=== PATIENT | female | born 1970 | race Caucasian/White ===

== ENCOUNTER 2017-10-14 10:55 | Inpatient (IN) | payer MEDICAID ==
[~2017-10-14] VITALS: Ht 157.5 cm; Wt 65.8 kg
[2017-10-14 11:02] VITALS: BP 125/69
--- NOTE | 2017-10-14 11:24 | NUR ---
Note undone in EDM - 10/14/17 at 1125 by MEDFL BUENO, VOMIT X 5 DAYS; GIVEN RX ZOFRAN AND MACROBID NO RELIEF. HAVENT TAKEN METFORMIN WHOLE WEEKEND D/T VOMITING. HX: DM. RX; GLUCOPHAGE 500MG BID. ALLERGIES;NKA. PATIENT STATES PAIN OF 8/10 AT THIS TIME; PATIENT POSITIONED FOR COMFORT; ER MD MADE AWARE OF PT STATUS.
--- NOTE | 2017-10-14 11:43 | NUR ---
PT MOVED TO BED 10
[2017-10-14] MEDS ORDERED: ONDANSETRON 4 MG/2 ML VIAL IVP ONE (11:45)
[2017-10-14] MEDS ORDERED: KETOROLAC 30 MG/ML VIAL IVP ONE (11:45)
[2017-10-14] MEDS ORDERED: NACL 0.9% 1,000 ML IV ONE ×2 (11:45→13:30)
[2017-10-14] MEDS ORDERED: cefTRIAXone 1,000 MG VIAL ONE (12:04)
[2017-10-14 12:08] LABS: BASOPHILS % (AUTO) 0.1 % (0.0-2.0); EOSINOPHILS % (AUTO) 0.2 % (0.0-4.0); HEMATOCRIT 33.8 % (36-48); HEMOGLOBIN 11.3 g/dL (12.0-16.0); LYMPHOCYTES # (AUTO) 0.5 K/uL (2.5-16.5); LYMPHOCYTES % (AUTO) 4.9 % (20.5-51.1); MEAN CORPUSCULAR HEMOGLOBIN 29 pg (27-31); MEAN CORPUSCULAR HGB CONC 33 g/dL (33-37); MEAN CORPUSCULAR VOLUME 86.6 fL (80-94); MONOCYTES # (AUTO) 0.6 K/uL (0.8-1.0); MONOCYTES % (AUTO) 5.8 % (1.7-9.3); NEUTROPHILS # (AUTO) 9.7 K/uL (1.8-7.7); PLATELET COUNT (AUTO) 179 K/uL (140-450); RED BLOOD CELL COUNT(AUTO) 3.91 MIL/uL (4.20-5.40); RED CELL DISTRIBUTION WIDTH 14.4 % (11.6-13.7); WHITE BLOOD COUNT (AUTO) 10.9 K/uL (4.8-10.8)
[2017-10-14 12:09] LABS: APPEARANCE,URINE CLEAR (CLEAR); BILIRUBIN,URINE NEGATIVE (NEGATIVE); BLOOD, URINE TRACE-I (NEGATIVE); COLOR,URINE YELLOW (YELLOW); LEUKOCYTE ESTERASE ,URINE NEGATIVE (NEGATIVE); NITRITE, URINE NEGATIVE (NEGATIVE); UGLUCOSE 3+ (NEGATIVE)
--- NOTE | 2017-10-14 12:12 | NUR ---
PT RECIEVED FROM JANET BRISENO. PT AMBULATES WITH NORMAL GAIT, PLACED ON ALL MONITORS, VS WNL. PT AXO X4, PERRLA, EQUAL COUNTER FORMER/PUSHES, FACIAL SYMMETRY, CLEAR SPEACH. 20G IV STARTED TO RFA, IVF NS BOLUS STARTED. NEW ORDERS TO BE CARRIED OUT
[2017-10-14 12:26] LABS: ALBUMIN 2.7 g/dL (3.4-5.0); ANION GAP 9.6 (8-16); CARBON DIOXIDE 26.3 mmol/L (21-32); CREATININE 0.9 mg/dL (0.6-1.3); POTASSIUM 3.9 mmol/L (3.5-5.1); TOTAL BILIRUBIN 0.6 mg/dL (0.0-1.0)
[2017-10-14 12:28] LABS: PROTHROMBIN TIME 11.9 secs (10.8-13.4)
[2017-10-14 12:58] LABS: RBC,URINE NONE SEEN /HPF (0-5)
[2017-10-14] MEDS ORDERED: fentaNYL 0.05 MG/ML VIAL IVP ONE (13:30)
[2017-10-14] MEDS ORDERED: INSULIN REGULAR, HUMAN 100 UNIT/ML VIAL SUBQ ONE (13:30)
--- NOTE | 2017-10-14 13:30 | NUR ---
Pt continues to c/o headache, Dr. Campos made aware, awaiting new orders.
[2017-10-14] MEDS ORDERED: ONDANSETRON 4 MG/2 ML VIAL IVP PRN ×2 (15:00→15:50)
--- NOTE | 2017-10-14 15:09 | NUR ---
Patient will be admitted to care of Dr. Ferguson. Admited to Med/Surg. Will go to room 111-B. Belongings list completed. Report to Jerilyn GONZALES.
[2017-10-14] MEDS ORDERED: NITR100C7 PO (15:43)
[2017-10-14] MEDS ORDERED: METF500T PO (15:43)
--- NOTE | 2017-10-14 15:45 | NUR ---
PT BROUGHT IN FROM ER IN [facility], REPORT RECEIVED FROM WAFER FABRICATION TECHNICIAN, PT AMBULATED FROM HALLWAY TO BED WITH STEADY GAIT, PT C/O NAUSEA, PT AAOX4, RESP EVEN UNLABORED, SKIN WARM DRY COLOR WNL, PT REPORTS VOMITING SINCE FRIDAY, PT ORIENTED TO ROOM AND FLOOR, PLAN OF CARE DISCUSSED, CALL DAMIAN WITHIN REACH, BED LOCKED IN LOW POSITION, SIDE RAILS UP X2, MRSA DONE, INITIAL ASSESSEMNT DONE, AT BEDSIDE, WILL CONTINUE TO MONITOR.
[2017-10-14] MEDS ORDERED: ACETAMINOPHEN 325 MG TAB PO PRN (15:50)
[2017-10-14] MEDS ORDERED: LORazepam 2 MG/ML VIAL IVP PRN (15:50)
[2017-10-14] MEDS ORDERED: DEXTROSE 50% 50 ML SYR IVP PRN (15:50)
[2017-10-14] MEDS ORDERED: DEXT 5% /NACL 0.9% 1,000 ML IV SCH (15:50)
[2017-10-14 16:22] VITALS: BP 144/72
[2017-10-14] MEDS: BLOOD GLUCOSE MONITORING 1 DEV DEV FS SCH ×2 (16:30→22:00)
[2017-10-14] MEDS: INSULIN LISPRO SLIDING SCALE 100 UNITS/ML VIAL SUBQ PRN ×2 (17:51→22:26)
--- NOTE | 2017-10-14 18:40 | NUR ---
PT SITTING UP IN NAD, STATES NAUSEA HAS SUBSIDED NOT, IVF INFUSING WELL, SITE WNL, WILL CONTINUE TO MONITOR,
--- NOTE | 2017-10-14 19:20 | NUR ---
REPORT GIVEN TO FEATHER TRIMMER NURSE MARI WHITTAKER IN STABLE CONDITION.
[2017-10-14 20:30] VITALS: BP 114/66
--- NOTE | 2017-10-14 20:30 | NUR ---
SEEN PT AWAKE, ALERT AND ORIENTED, SPEAKS MOSTLY KITTITIAN. FAMILY AT BEDSIDE AT BEDSIDE. INITIAL ASSESSMENT DONE. VITAL SIGNS CHECKED. PT COMPLAINING OF HEADACHE AND FEELS NAUSEOUS RIGHT NOW. WILL MEDICATE W/ ZOFRAN IVP ORDERED. OFFERED TYLENOL BUT REFUSED. OFFERED NORCO AND PT STATES ITS MAKING HER MORE NAUSEOUS. PT STATES, THEY GAVE HER SOMETHING IV IN ED AND IT RELIEVED HER PAIN. WILL NOTIFY MD. SAFETY ENSURED. CALL LIGHT W/IN REACH. PT ASKED FOR EXTRA EMESIS BAG AND CRANBERRY JUICE.
--- NOTE | 2017-10-14 20:56 | NUR ---
PAGED DR Marcelo WHATLEY FOR PT'S HEADACHE. WILL AWAIT FOR CALL BACK.
--- NOTE | 2017-10-14 20:58 | NUR ---
SPOKE TO DR Marcelo WHATLEY REGARDING PT'S HEADACHE. HE ORDERED TORADOL 30MG IVP [id number] FOR SEVERE PAIN.
--- NOTE | 2017-10-14 22:00 | NUR ---
SEEN PT ASLEEP. AWAKEN PT. BLOOD SUGAR CHECKED:167. PT GIVEN 2UNITS OF LISPRO INSULIN PER SLIDING SCALE. PT DENIES ANY OTHER NEEDS. CALL LIGHT W/IN REACH.
[2017-10-14] MEDS: KETOROLAC 30 MG/ML VIAL IVP PRN (22:23)
--- NOTE | 2017-10-15 00:40 | NUR ---
SEEN PT SLEEPING COMFORTABLY. IVF INFUSING WELL. CALL LIGHT W/IN REACH.
[2017-10-15 04:00] VITALS: BP 148/95
--- NOTE | 2017-10-15 04:25 | NUR ---
SEEN PT AWAKE. VITAL SIGNS CHECKED AND WNL. PT DENIES ANY COMPLAINTS AT THIS TIME. CALL LIGHT W/IN REACH. WILL CONTINUE TO MONITOR.
[2017-10-15 06:48] LABS: HEMATOCRIT 26.3 % (36-48); MEAN CORPUSCULAR HEMOGLOBIN 29 pg (27-31); MEAN CORPUSCULAR HGB CONC 34 g/dL (33-37); MEAN CORPUSCULAR VOLUME 86.2 fL (80-94); PLATELET COUNT (AUTO) 148 K/uL (140-450); RED BLOOD CELL COUNT(AUTO) 3.06 MIL/uL (4.20-5.40); RED CELL DISTRIBUTION WIDTH 14.3 % (11.6-13.7)
--- NOTE | 2017-10-15 06:50 | NUR ---
SEEN PT AWAKE. BLOOD SUGAR CHECKED:142. NO COVERAGE NEEDED. PT DENIES ANY DISCOMFORT. ICE CHIPS GIVEN PER REQUEST.
[2017-10-15] MEDS: BLOOD GLUCOSE MONITORING 1 DEV DEV FS SCH ×4 (06:59→20:16)
[2017-10-15 07:21] LABS: EOSINOPHILS % (MANUAL) 1 % (0-4); LYMPHOCYTES % (MANUAL) 12 % (20-46); MONOCYTES % (MANUAL) 10 % (5-12)
--- NOTE | 2017-10-15 07:26 | NUR ---
WILL ENDORSE TO DAYSHIFT NURSE FOR CONTINUITY OF CARE.
[2017-10-15 07:28] LABS: ANION GAP 12.1 (8-16); CARBON DIOXIDE 22.5 mmol/L (21-32); CREATININE 0.7 mg/dL (0.6-1.3); POTASSIUM 3.6 mmol/L (3.5-5.1)
--- NOTE | 2017-10-15 08:00 | NUR ---
ASSUMED CARE OF PATIENT. PATIENT IS AWAKE ALERT AND ORIENTED, ABLE TO MAKE NEEDS KNOWN, DENIES PAIN OR DISCOMFORT AT THIS TIME. WILL CONTINUE TO MONITOR
--- NOTE | 2017-10-15 10:27 | NUR ---
PATIENT HAS BEEN SCREENED AND CATEGORIZED HIGH NUTRITION RISK. PATIENT WILL BE SEEN WITHIN 1-2 DAYS OF ADMISSION. 10/15/17 - 10/16/[address]
--- NOTE | 2017-10-15 12:30 | NUR ---
SPOUSE AT BEDSIDE AND ATTENTIVE TO PATIENTS NEEDS. NO ADVERSE REACTION NOTED TO FIRST DOSE OF ROCEPHIN AT THIS TIME. WILL CONTINUE TO MONITOR
[2017-10-15] MEDS: KETOROLAC 30 MG/ML VIAL IVP PRN (12:31)
[2017-10-15] MEDS: INSULIN LISPRO SLIDING SCALE 100 UNITS/ML VIAL SUBQ PRN ×3 (12:38→20:19)
[2017-10-15] MEDS ORDERED: NACL 0.9% 1,000 ML IV SCH (15:50)
[2017-10-15 18:57] VITALS: BP 147/78
--- NOTE | 2017-10-15 19:30 | NUR ---
RECEIVED BEDSIDE REPORT FROM DAY SHIFT NURSE BRINDA RN, PT STABLE, NO DISTRESS NOTED, IV TO R FA 20G RUNNING NS @ 100ML/HR, INFUSING WELL, PT ON ROOM AIR NO SOB, INITIAL ASSESSMENT DONE, ALL SAFETY PRECAUTION MET, FAMILY BY BEDSIDE, WILL CONTINUE TO MONITOR.
--- NOTE | 2017-10-15 20:16 | NUR ---
CHECKED PT BS, PT BS OF 195, INSULIN PER SLIDING SCALE ORDERED GIVEN, PT TOLERATED WELL, NO DISTRESS NOTED, CALL LIGHT WITHIN REACH, WILL CONTINUE TO MONITOR.
--- NOTE | 2017-10-15 22:20 | NUR ---
CHECKED ON PT, PT SLEEPING, NO DISTRESS NOTED, CALL LIGHT WITHIN REACH, WILL CONTINUE TO MONITOR.
[2017-10-16] VITALS: BP 149/57
[2017-10-16] MEDS: KETOROLAC 30 MG/ML VIAL IVP PRN (00:59)
--- NOTE | 2017-10-16 00:59 | NUR ---
PT C/O HEADACHE 04/15, PAIN MEDICATION GIVEN, PT TOLERATED WELL, NO DISTRESS NOTED, CALL LIGHT WITHIN REACH, WILL CONTINUE TO MONITOR.
--- NOTE | 2017-10-16 02:24 | NUR ---
CHECKED ON PT, PT SLEEPING, NO DISTRESS NOTED, CALL LIGHT WITHIN REACH, WILL CONTINUE TO MONITOR.
--- NOTE | 2017-10-16 04:10 | NUR ---
CHECKED ON PT, PT SLEEPING, NO DISTRESS NOTED, CALL LIGHT WITHIN REACH, WILL CONTINUE TO MONITOR.
[2017-10-16] MEDS: BLOOD GLUCOSE MONITORING 1 DEV DEV FS SCH ×4 (06:06→20:58)
[2017-10-16 06:29] LABS: BASOPHILS % (AUTO) 0.4 % (0.0-2.0); EOSINOPHILS # (AUTO) 0.1 K/uL (0-0.4); HEMOGLOBIN 8.9 g/dL (12.0-16.0); LYMPHOCYTES # (AUTO) 1.6 K/uL (2.5-16.5); MEAN CORPUSCULAR HEMOGLOBIN 30 pg (27-31); MEAN CORPUSCULAR HGB CONC 34 g/dL (33-37); MEAN CORPUSCULAR VOLUME 86.7 fL (80-94); MONOCYTES # (AUTO) 0.9 K/uL (0.8-1.0); MONOCYTES % (AUTO) 14.5 % (1.7-9.3); NEUTROPHILS # (AUTO) 3.8 K/uL (1.8-7.7); NEUTROPHILS % (AUTO) 59.1 % (42.2-75.2); PLATELET COUNT (AUTO) 171 K/uL (140-450); RED CELL DISTRIBUTION WIDTH 14.6 % (11.6-13.7); WHITE BLOOD COUNT (AUTO) 6.4 K/uL (4.8-10.8)
[2017-10-16 06:57] LABS: ANION GAP 10.5 (8-16); CARBON DIOXIDE 25.4 mmol/L (21-32); CREATININE 0.6 mg/dL (0.6-1.3); POTASSIUM 3.9 mmol/L (3.5-5.1)
--- NOTE | 2017-10-16 07:29 | NUR ---
ENDORSED PLAN OF CARE TO DAY SHIFT NURSE MACARIO RN, PT STABLE, NO DISTRESS NOTED, CALL LIGHT WITHIN REACH.
--- NOTE | 2017-10-16 07:30 | NUR ---
RECEIVED PT ON BED AAOX4. NO SOB NOTED. NO C/O PAIN AT THIS TIME. IV TO RT HAND PATENT AND INTACT. CHEST, CLEAR. ABDOMEN SOFT, BOWEL SOUNDS PRESENT. NO EDEMA NOTED. INSTRUCTED PT TO CALL FOR ASSISTANCE, CALL LIGHT WITHIN REACH. PT VERBALIZED UNDERSTANDING.
[2017-10-16 08:00] VITALS: BP 141/72
--- NOTE | 2017-10-16 10:05 | NUR ---
PT HAD A SHOWER. ACTIVITY TOLERATED WELL.
--- NOTE | 2017-10-16 11:25 | NUR ---
CM NOTE INITIAL REVIEW DONE
[2017-10-16] MEDS: INSULIN LISPRO SLIDING SCALE 100 UNITS/ML VIAL SUBQ PRN ×2 (12:09→21:01)
--- NOTE | 2017-10-16 13:34 | NUR ---
10/16/17 RD INITIAL ASSESSMENT COMPLETED PLEASE REFER TO NUTRITION ASSESSMENT UNDER CARE ACTIVITY FOR ESTIMATED NUTRITIONAL NEEDS. 1. CONTINUE CCHO 60G TOLERATED 2. RECOMMEND NA 2G DIET TOLERATED 3. ENCOURAGE INCREASED PO INTAKE 4. PROVIDED PT WITH CKD DIET EDUCATION, PT ACKNOWLEDGED 5. RD TO FOLLOW-UP DAYS, 5-7 DAYS, LOW RISK TARIQ NICE RD
--- NOTE | 2017-10-16 16:20 | NUR ---
PT RESTING. NO SOB NOTED. NO SIGNS OF PAIN.
[2017-10-16 16:45] VITALS: BP 152/77
[2017-10-16] MEDS: HYDROcodone/APAP 5/325 MG 1 TAB TAB PO PRN ×2 (16:59→21:07)
--- NOTE | 2017-10-16 19:22 | NUR ---
PT AWAKE. NO SOB NOTED. NO C/O PAIN AT THIS TIME. ENDORSED TO NEXT SHIFT NURSE FOR CONTINUITY OF CARE.
--- NOTE | 2017-10-16 19:23 | NUR ---
RECD. RESTING IN BED, AWAKE, A/OX4. RESPIRATION EVEN AND UNLABORED. IV SALINE LOCK AT THE RIGHT FOREARM G20, PATENT AND INTACT. WATCHING TV. PLAN OF CARE FOR THE SHIFT DISCUSSED. VERBALIZED UNDERSTANDING. DENIES PAIN 0/10.
--- NOTE | 2017-10-16 19:35 | NUR ---
Patient's Plan of Care was discussed and reviewed with ACTUARY MANAGER: THU SUÁREZ
[2017-10-16] MEDS ORDERED: traZODone 50 MG TAB PO PRN (22:40)
--- NOTE | 2017-10-16 22:40 | NUR ---
SPOKE WITH DR. Monica WHATLEY, WILL SEE PATIENT TOMORROW.
[2017-10-17] VITALS: BP 144/70
--- NOTE | 2017-10-17 02:39 | NUR ---
UNABLE TO SLEEP, MEDICATED WITH TRAZODONE ORDERED.
--- NOTE | 2017-10-17 03:39 | NUR ---
SLEEPING COMFORTABLY IN BED.
[2017-10-17] MEDS: BLOOD GLUCOSE MONITORING 1 DEV DEV FS SCH (06:49)
--- NOTE | 2017-10-17 06:50 | NUR ---
ABLE TO SLEEP WELL. CONDITION REMAIN STABLE. WILL ENDORSE TO AM NURSE FOR CONTINUITY OF CARE.
--- NOTE | 2017-10-17 07:10 | NUR ---
ENDORSED TO MS. JULIANNE RN FOR CONTINUITY OF CARE.
[2017-10-17 07:20] LABS: BASOPHILS % (AUTO) 0.3 % (0.0-2.0); EOSINOPHILS # (AUTO) 0.1 K/uL (0-0.4); EOSINOPHILS % (AUTO) 2.1 % (0.0-4.0); HEMATOCRIT 26.4 % (36-48); LYMPHOCYTES # (AUTO) 1.3 K/uL (2.5-16.5); LYMPHOCYTES % (AUTO) 22.4 % (20.5-51.1); MEAN CORPUSCULAR HEMOGLOBIN 29 pg (27-31); MEAN CORPUSCULAR HGB CONC 34 g/dL (33-37); MEAN CORPUSCULAR VOLUME 86.1 fL (80-94); MONOCYTES # (AUTO) 0.8 K/uL (0.8-1.0); MONOCYTES % (AUTO) 13.5 % (1.7-9.3); NEUTROPHILS # (AUTO) 3.6 K/uL (1.8-7.7); NEUTROPHILS % (AUTO) 61.7 % (42.2-75.2); PLATELET COUNT (AUTO) 196 K/uL (140-450); RED BLOOD CELL COUNT(AUTO) 3.06 MIL/uL (4.20-5.40); RED CELL DISTRIBUTION WIDTH 14.3 % (11.6-13.7); WHITE BLOOD COUNT (AUTO) 5.9 K/uL (4.8-10.8)
--- NOTE | 2017-10-17 07:30 | NUR ---
ASSUMED CARE OF PATIENT. PATIENT IS ASLEEP AND AWAKENED EASILY, ON WAKING PATIENT IS ALERT AND ORIENTED ABLE TO MAKE NEEDS KNOWN, CONTINUES TO C/O HEADACHE THAT "DOSE NOT SEEM TO GO AWAY" WILL MEDICATE FOR SAME. NO OTHER COMPLAINT VOICED AT THIS TIME. CALL LIGHT IN REACH AND BED IN LOW POSITION
[2017-10-17 07:40] LABS: ALBUMIN 2.2 g/dL (3.4-5.0); ANION GAP 11.3 (8-16); CARBON DIOXIDE 26.4 mmol/L (21-32); CREATININE 0.5 mg/dL (0.6-1.3); POTASSIUM 3.7 mmol/L (3.5-5.1); TOTAL BILIRUBIN 0.3 mg/dL (0.0-1.0)
[2017-10-17 08:19] VITALS: BP 140/74
[2017-10-17] MEDS: KETOROLAC 30 MG/ML VIAL IVP PRN (08:51)
--- NOTE | 2017-10-17 09:30 | NUR ---
PATIENT SEEN BY DR LUCIANO AND WILL BE DISSHARGED TODAY. SPOUSE AND MOTHER AT BEDSIDE AND AWARE OF DISCHARGE PLANS.
[2017-10-17] MEDS ORDERED: LEVO750T2 PO (09:48)
[2017-10-17] MEDS ORDERED: IBUP-2213 PO (09:48)
--- NOTE | 2017-10-17 11:40 | NUR ---
PATIENT GIVEN DISCHARGE INSTRUCTIONS ALONG WITH PRESCRIPTIONS FOR IBUPROFEN AND LEVOQUIN. PATIENT IS ABLE TO VERBALIZE UNDERSTANDING OF INSTRUCTION. SPOUSE NOT PRESENT AT THIS TIME. IV NOT REMOVED.
--- NOTE | 2017-10-17 12:15 | NUR ---
SPOUSE AND MOTHER AT BEDSIDE. IV REMOVED AND PATIENT AMBULATED TO PRIVATE TRANSPORTATION ACCOMPANIED BY FAMILY. ALL BELONGINGS TAKEN AT THIS TIME.
== END 2017-10-17 12:10 | disposition home or self-care (01) | DRG 720 ==
LOC: MED 10:55 → MTU 14:48
PROVIDERS: ADMIT Preventive Medicine Preventive Medicine/Occupational Environmental Medicine; ATTEND Preventive Medicine Preventive Medicine/Occupational Environmental Medicine
DX: A41.51 Sepsis due to Escherichia coli [E. coli] (principal); E43 Unspecified severe protein-calorie malnutrition; E11.22 Type 2 diabetes mellitus with diabetic chronic kidney disease; N39.0 Urinary tract infection, site not specified; E87.1 Hypo-osmolality and hyponatremia; D64.9 Anemia, unspecified; N18.9 Chronic kidney disease, unspecified; E88.09 Other disorders of plasma-protein metabolism, not elsewhere classified; E83.52 Hypercalcemia; E11.65 Type 2 diabetes mellitus with hyperglycemia; Z90.49 Acquired absence of other specified parts of digestive tract; Z68.26 Body mass index [BMI] 26.0-26.9, adult
CPT/HCPCS: 36415; 80048; 80053; 81001; 82948; 83605; 84484; 85025; 85610; 85651; 85730; 86140; 87040; 87081; 87086; 87186; 93005; 96361; 96365; 96375; 96376; 99285; J0696; J1815; J1885; J2405; J3010; J7030; J7060